=== PATIENT | female | born 1990 | race Caucasian/White ===

== ENCOUNTER → 2020-11-12 10:42 | Outpatient (CLI) | payer OTHER, MEDICAID, SELFPAY ==
--- NOTE | 2020-11-12 | DI.US.S_ITS ---
PROCEDURE: US OB <= 14 WEEKS FETUS INDICATIONS: SIZE AND DATES OUTSIDE/PRIOR DATING DATA: Last menstrual period (LMP): September 25, 2020 LMP-based estimated date of delivery (ITALIA): July 02, 2021 First dating scan (date and location): [facility]. Estimated date of delivery (ITALIA) from first dating scan: July 04, 2021 TECHNIQUE: Real-time scanning was performed of the fetus and maternal pelvic organs, with image documentation. Endovaginal scanning was also performed to better visualize the fetus and maternal ovaries. COMPARISON: None. FINDINGS: Embryo: The crown-rump length measures 7.2 mm, compatible with a 6 week, 4 day gestation. Heart rate: The heart rate measures 125 beats per minute. Maternal organs: Echogenic lesion within the right ovary, which may represent a corpus luteum. The left ovary demonstrates no significant abnormality. IMPRESSION: No sonographic abnormality. Dictated by: Jason Scott M.D. on 11/12/2020 at 11:49 Approved by: Jason Scott M.D. on 11/12/2020 at 11:54
== END ==
PROVIDERS: PCP Family Medicine; Referring Provider Family Medicine; Visit Provider Family Medicine
DX: Z3A.01 Less than 8 weeks gestation of pregnancy; Z36.87 Encounter for antenatal screening for uncertain dates
CPT/HCPCS: 76801; 76817

== ENCOUNTER → 2021-03-10 14:01 | Outpatient (CLI) | payer OTHER, MEDICAID, SELFPAY ==
--- NOTE | 2021-03-10 | DI.US.S_ITS ---
PROCEDURE: US OB >= 14 WEEKS FETUS INDICATIONS: 20 WEEK ANATOMY OUTSIDE/PRIOR DATING DATA: Last menstrual period (LMP): 09/25/20. LMP-based estimated date of delivery (ITALIA): 07/02/21. First dating scan (date and location): 11/12/20. Estimated date of delivery (ITALIA) from first dating scan: 07/04/21. The calculations are made using the ultrasound ITALIA of 07/04/21. TECHNIQUE: Real-time scanning was performed of the fetus, with image documentation and biometric measurements. Endovaginal scanning: Not performed COMPARISON: None. FINDINGS: General: A single living intrauterine gestation is present. Presentation: Transverse, head to maternal right. Placenta: Placental position is posterior , without previa. Amniotic fluid index: 14.4 cm, normal range is 5-24 cm. Single deepest vertical pocket is 4.1 cm. heart rate: 141 beats per minute. Maternal cervical canal: 4.1 cm long. Normal lower limit is 2.5 cm. biometrics: Biparietal diameter: 6.1 cm, 24 weeks, five days Head circumference: 22.0 cm, 24 weeks, 0 days Abdominal circumference: 19.5 cm, 24 weeks, one day Femur length: 4.1 cm, 23 weeks, two days Clinically estimated gestational age: 23 weeks, three days Composite gestational age from present scan: 24 weeks, 0 days Estimated weight and percentile: 635 g, 63rd percentile Anatomic survey: Neuro: Ventricles are non-dilated at less than 10 mm. Cisterna magna is normal at 3-11 mm. Cerebellum is normal in size and morphology. Nuchal skin fold: Normal at less than 6 mm between 14-21 weeks gestational age. Face: Nose and lips, facial profile are normal. Spine: No evidence for spina bifida. Heart: 4-chambered heart is present. Cardiac outflow tracts were not well seen. Diaphragm: Diaphragm is intact. Stomach: Left-sided stomach is present. Kidneys: No hydronephrosis. Normal is less than 5 mm in 2nd trimester, less than 7 mm in 3rd trimester. Cord: 3-vessel cord has orthotopic insertion. Bladder: Normal in size. Extremities: All 4 extremities identified. IMPRESSION: 1. Single living intrauterine with appropriate growth since the prior study. 2. Cardiac outflow tracts were suboptimally assessed given position. Consider follow-up. 3. Otherwise normal anatomy. We strive to produce accurate, complete, and clear reports of imaging services. To assist us in improving patient care, this report was composed using standard report templates and voice recognition software. Therefore, it may contain abnormal punctuation, insertions and/or omissions. Occasional wrong-word or sound-alike substitutions may occur. Though we review the report and make efforts to correct it, we do recommend that the report be read carefully in proper context to recognize any text inaccuracies. Dictated by: Rosa Tang M.D. on 03/10/2021 at 16:03 Approved by: Rosa Tang M.D. on 03/10/2021 at 16:13
--- NOTE | 2021-03-19 | DI.US.S_ITS ---
PROCEDURE: US OB LIMITED INDICATIONS: RE-EVALUATE HEART OUTSIDE/PRIOR DATING DATA: Last menstrual period (LMP): 09/25/2020 LMP-based estimated date of delivery (ITALIA): 07/02/2021. First dating scan (date and location): 11/12/2020. Estimated date of delivery (ITALIA) from first dating scan: 10/26/2021. The calculations are made using the ultrasound ITALIA of 07/04/2021. TECHNIQUE: Real-time scanning was performed of the fetus, with image documentation and biometric measurements. COMPARISON: Located Within [facility], , OB >= 14 WEEKS FETUS, 03/10/2021, 14:25. FINDINGS: General: A single living intrauterine gestation is present. Presentation: Transverse. Placenta: Placental position is posterior , without previa. Amniotic fluid index: 17.5 cm, normal range is 5-24 cm. heart rate: 130 beats per minute. Maternal cervical canal: 5.2 cm long. Normal lower limit is 2.5 cm. Clinically estimated gestational age: 24 weeks 5 days Of solitary left ventricular intracardiac focus and normal appearance of the cardiac outflow tracts. IMPRESSION: 1. Single living IUP redemonstrated and today's exam demonstrating solitary left ventricular intracardiac focus; otherwise normal appearance of the four-chamber heart and cardiac outflow tracts. We strive to produce accurate, complete, and clear reports of imaging services. To assist us in improving patient care, this report was composed using standard report templates and voice recognition software. Therefore, it may contain abnormal punctuation, insertions and/or omissions. Occasional wrong-word or sound-alike substitutions may occur. Though we review the report and make efforts to correct it, we do recommend that the report be read carefully in proper context to recognize any text inaccuracies. Dictated by: Mani LEONE Interpreted: Shyam Strickland MD on 03/19/2021 at 14:33 Transcribed by: ROSANGELA on 03/19/2021 at 14:35 Approved by: Shyam Strickland M.D. on 03/19/2021 at 16:48
== END ==
PROVIDERS: PCP Family Medicine; Referring Provider Student in an Organized Health Care Education/Training Program; Visit Provider Student in an Organized Health Care Education/Training Program
DX: Z36.89 Encounter for other specified antenatal screening (principal); Z3A.24 24 weeks gestation of pregnancy
CPT/HCPCS: 76811

== ENCOUNTER → 2021-03-19 08:53 | Outpatient (CLI) | payer OTHER, SELFPAY | PROVIDERS: PCP Family Medicine; Referring Provider Family Medicine; Visit Provider Family Medicine | DX: Z36.2 Encounter for other antenatal screening follow-up (principal); Z3A.24 24 weeks gestation of pregnancy | CPT/HCPCS: 76815 ==

== ENCOUNTER → 2021-06-09 10:40 | Outpatient (ROUT) | payer OTHER, MEDICAID, SELFPAY | PROVIDERS: PCP Family Medicine; Visit Provider Student in an Organized Health Care Education/Training Program | DX: Z33.1 Pregnant state, incidental (principal) | CPT/HCPCS: 87081 ==

== ENCOUNTER 2021-07-06 12:01 | Outpatient (CLI) | payer OTHER, MEDICAID, SELFPAY | END 2021-07-06 12:55 | disposition home or self-care (01) | LOC: OB 07-07 14:29 | PROVIDERS: PCP Family Medicine; Referring Provider Student in an Organized Health Care Education/Training Program; Visit Provider Student in an Organized Health Care Education/Training Program | DX: O48.0 Post-term pregnancy (principal); O47.1 False labor at or after 37 completed weeks of gestation; Z3A.40 40 weeks gestation of pregnancy | CPT/HCPCS: 59025; G0378; G0379 ==

== ENCOUNTER 2021-07-07 10:41 | Observation (INO) | payer OTHER, MEDICAID, SELFPAY | END 2021-07-07 11:30 | disposition home or self-care (01) | PROVIDERS: Admitting Provider Student in an Organized Health Care Education/Training Program; PCP Family Medicine; Referring Provider Student in an Organized Health Care Education/Training Program; Visit Provider Student in an Organized Health Care Education/Training Program | DX: O48.0 Post-term pregnancy (principal); O47.1 False labor at or after 37 completed weeks of gestation; Z3A.40 40 weeks gestation of pregnancy | CPT/HCPCS: 59025; G0378; G0379 ==

== ENCOUNTER 2021-07-07 20:00 | Inpatient (IN) | payer OTHER, MEDICAID, SELFPAY ==
--- NOTE | 2021-07-07 20:49 | P.HPOB_ITS ---
OB HPI Date/Time Date of admission: 07/07/21 Date Patient Seen: 07/07/21 Time Patient Seen: 20:49 History of Present Condition Chief complaint: observation of labor Narrative: Shadia Ferguson is a 31 year old at female at 40w4d with ITALIA of 07/04/21 per first trimester ultrasound. She presents with active labor. Her course was complicated by COVID at 23 WGA. She was vacinated x 2 at time of inf ection and after resolution did get her booster. 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 During routine 24 week ultrasound, cardiac tracts were not completely seen. Follow-up ultrasound 5 days later, on 03/19/2021, showed a solitary left ventricular intracardiac focus but otherwise normal appearance of four-chamber heart and cardiac outflow tracts. MFM review on 03/24/21 reported normal variant with no follow-up required. She then had an ultrasound for growth at 30w6d which showed normal interval growth at 55th percentile but a femur length of < 1st percentile and a left renal pelvis at upper limits of normal, 7 mm. Follow-up [facility] ultrasound on 05/19/2021 revealed the femur length to be within normal limits at 8th percentile and the kidneys to also be within normal limits. MF consult was then canceled by [facility] and reassurance provided. LABS/IMAGING: ABO O positive, antibody negative on 12/08/20. Rubella immune. Hepatitis-B surface antigen negative. HIV, HSV 1 and 2 negative. GC/chlamydia negative. Treponemal antibody negative. Varicella titer positive. Pap smear plus HPV DNA negative on 11/30/20. Urine culture negative on 11/30/20. Hemoglobin/hematocrit 12.2/34.7 on 04/15/21. Repeat hemoglobin/hematocrit 12.0/35.1 on 04/15/21. TSH within normal limits. 1 hour Glucola negative on 04/15/21. GBS negative on 06/09/21. NIPT negative, 12/08/20, male. Dating US: 11/12/2020, 6w4d, ITALIA 07/04/21 Anatomy Scan: 24w0d, cardiac outflow tracks well seen follow-up ultrasound at 24w5d showed heart to be a normal variant. Growth scan: 30w6d, EFW 55th percentile with normal interval growth, femur length < 1st percentile, left renal pelvis at upper limits of normal. Follow up scan at 33w5d show normal femur length and normal kidneys. MFM review revealed no follow-up required. OBSTETRIC HISTORY: GYNECOLOGICAL HISTORY: ASCUS/HPV PAST MEDICAL HISTORY: History of abnormal pap smear, ASCUS, HPV + TAB x 2, first trimester PAST SURGICAL HISTORY: Colposcopy with cryotherapy, 2013 ACL/meniscal repair, 2016 FAMILY HISTORY: Father: Alcoholism, hyperlipidemia Mother: Breast cancer SOCIAL HISTORY: Single. FOB/boyfriend Edmund, involved and supportive. Works at [employer] in [place]. 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 Meds Home Medications and Allergies Allergies Allergy/AdvReac Type Severity Reaction Status Date / Time Naproxen Allergy Unknown Uncoded 05/17/17 12:22 Review of Systems Review of Systems Narrative: All remaining ROS were reviewed and negative except as addressed. OB Exam Narrative Exam Narrative: General: NAD Skin: Color unremarkable, no rash nor lesions HEENT: Neck supple with midline trachea Lungs: CTAB Heart: Normal rate, and regular rhythm, S1, S2 normal, no murmur, click, rub or gallop Abdomen: Gravid, soft, non-tender Extremities: No clubbing, no edema, no cyanosis Pelvis: Normal female external genitalia Presentation: vertex Cervix: 8/100/0/mid/soft, AROM with clear fluid Monitoring: Variability: Moderate Baseline: 130s Accelerations: Present Decelerations: few variables Contractions: Every 3 minutes Strength: Moderate Assessment and Plan Assessment and Plan Assessment and Plan narrative: 1. IUP at 40w4d 2. 3. Active Labor 4. Post-dates 5. HSV 2 Plan: Admit to Labor and delivery with routine orders. Anticipate vaginal delivery. Epidural now. Questions answered, appropriate consents will be signed.
[2021-07-07 21:15] VITALS: BP 127/74
[2021-07-07] MEDS: LACTATED RINGERS 1,000 ML 100 ML IV (22:00)
[2021-07-07 22:31] LABS: Add Manual Diff / Slide Review NO; Basophils Absolute Auto 100 /uL (0-100); Basophils Percent Auto 0.4 % (0-2); Eosinophils Absolute Auto 0 /uL (0-450); Eosinophils Percent Auto 0.1 % (2-4); Hematocrit 36.4 % (36-46); Hemoglobin 12.8 g/dL (12.0-16.0); Lymphocytes Absolute Auto 1500 /uL (1100-4500); Lymphocytes Percent Auto 10.6 % (25-40); Mean Corpuscular Hemoglobin 31.4 PG (26-34); Mean Corpuscular Volume 89.7 fL (80-100); Monocytes Absolute Auto 400 /uL (0-900); Monocytes Percent Auto 2.9 % (3-14); Neutrophils Absolute Auto 12500 /uL (1500-7000); Platelet Count 266 X10^3/uL (150-400); Red Blood Cell Count 4.06 X10^6/uL (4.0-5.2); Red Cell Distribution Width 13.7 % (11.6-14.8); White Blood Cell Count 14.5 X10^3/uL (4.5-11.0)
[2021-07-07 22:42] LABS: COVID19 -Nasal RAPID Negative (Negative)
--- NOTE | 2021-07-07 23:00 | PM.AN.REGBLK ---
Regional Block Pre-procedure Procedure: Continuous Lumbar Epidural for L&D Attending OB provider: Ambreen Ascencio PM/ROS narrative: term labor (post dates), no complications ASA Class: II Labs: Hct 36.4 % (36-46) 07/07/21 21:30 Plt Count 266 X10^3/uL (150-400) 07/07/21 21:30 Medications: Current Medications Generic Name Dose Route Start Last Admin Trade Name Freq PRN Reason Stop Dose Admin Calcium Carbonate 1,000 mg 07/07/21 20:46 Calcium Carbonate 500 Mg Tab PO Q2HR PRN Dyspepsia Carboprost Tromethamine 250 mcg 07/07/21 20:46 Carboprost 250 Mcg/Ml Ampul IM Q90M PRN Bleeding Diphenhydramine HCl 25 mg 07/07/21 22:26 Diphenhydramine 50 Mg/Ml Vial IV Q10M PRN Pruritis Fentanyl 100 mcg 07/07/21 20:46 Fentanyl 100 Mcg/2 Ml Inj IV Q1H PRN Pain, Severe (7-10) Lactated Ringer's 1,000 mls @ 100 mls/hr 07/07/21 21:00 Lactated Ringers IV CONT GRACE Oxytocin/Lactated Ringer's 30 unit in 500 mls @ 200 mls/hr 07/07/21 20:46 Oxytocin Premix IV CONT PRN Bleeding Protocol Tranexamic Acid 1,000 mg/ 100 mls @ 200 mls/hr 07/07/21 20:46 Sodium Chloride IV NOW PRN Bleeding FENT 2MCG/ML BUPIV 0.125% EPI 200 mcg in 100 mls @ 6 mls/hr 07/07/21 22:30 Fentanyl/Bupiv/Ns 2mcg/Ml - 0.125% EPIDURAL CONT GRACE Methylergonovine Maleate 0.2 mg 07/07/21 20:46 Methylergonovine 0.2 Mg Tablet PO Q6HR PRN Heavy Bleeding Methylergonovine Maleate 0.2 mg 07/07/21 20:46 Methylergonovine 0.2 Mg/Ml Vial IM NOW PRN Bleeding Misoprostol 800 mcg 07/07/21 20:46 Misoprostol 200 Mcg Tablet MT NOW PRN Bleeding Misoprostol 1,000 mcg 07/07/21 20:46 Misoprostol 200 Mcg Tablet MT NOW PRN Bleeding Misoprostol 400 mcg 07/07/21 20:46 Misoprostol 200 Mcg Tablet SL NOW PRN Bleeding Nalbuphine HCl 2.5 mg 07/07/21 22:26 Nalbuphine 20 Mg/Ml Ampul IV Q10M PRN Pruritis Naloxone HCl 0.2 mg 07/07/21 20:46 Naloxone 0.4 Mg/Ml Vial IV Q2MIN PRN Opiate Reversal Ondansetron HCl 4 mg 07/07/21 20:46 Ondansetron 4 Mg/2 Ml Inj IV Q4HR PRN Nausea And Vomiting Oxytocin 10 unit 07/07/21 20:46 Oxytocin 10 Unit/Ml Vial IM NOW PRN Bleeding Allergies: Allergies Allergy/AdvReac Type Severity Reaction Status Date / Time Naproxen Allergy Unknown Uncoded 05/17/17 12:22 Procedure Insertion date: 07/07/21 Insertion time: 22:40 Prep/Local: betadine x3 and 1% lidocaine Interspace: L3-4 Patient position: sitting Needle: 18 gauge [employer] (CSE: 27g Pencan through Hustead, clear CSF, 1mL 0.25% bupiv MPF) Loss of resistance with: saline MAGED at (cm): 6 Catheter placed at SKIN (cm): 12 Catheter in SPACE (cm): 6 Insertion: No CSF, No Blood, No Paresthesia with insertion, No Paresthesia with injection and No Test dose reaction Initial Medications TEST DOSE time: 22:41 TEST DOSE: 1.5% lidocaine with epinephrine 1:200k (mL): 3 BOLUS DOSE time: 22:55 BOLUS DOSE (mL): 5 BOLUS DOSE med: other (infusate) Infusion INFUSION: 0.125% bupivacaine and with fentanyl 2 mcg/mL Initial rate (mL/hr): 6 Subsequent interventions: Vacuum-assisted vaginal delivery Post-procedure Anesthesia time START: 22:27 Anesthesia time END: 00:29 Post-procedure Anesthesia Assessment: Yes CV function: HR/BP stable, Yes Resp function: RR/sat/airway adequate, Yes Mental status appropriate and No Anesthesia complications
--- NOTE | 2021-07-07 23:42 | PM.OBPNLAB ---
Date/Time Date Patient Seen: 07/07/21 Time Patient Seen: 23:42 Pain Control Comments: Status post epidural, feeling very comfortable. Feeling pressure. Pelvic Exam Dilation (cm): 10 Effacement (%): 100 station: +2 Contractions Monitor mode: External Contraction frequency (min): 3 Contraction duration (min): 1 Contraction pattern: Regular Contraction intensity: Moderate Status Heart Rate Baseline: 120 Monitor Accelerations: Present Monitor Decelerations: Absent Monitor Variability: Moderate Assessment and Plan Assessment: active labor Plan: continuous present management Comments: Will start pushing.
[2021-07-08] MEDS: LACTATED RINGERS 1,000 ML 100 ML IV (00:15)
[2021-07-08] MEDS: OXYTOCIN PREMIX 30 UNIT/500 ML PLAST..BAG 200 UNIT IV (00:34)
--- NOTE | 2021-07-08 01:34 | P.PCNOB_ITS ---
Labor & Delivery Narrative: Operation:?Vacuum-Assisted Vaginal Delivery Date:?07/08/21 Physician: Ambreen Ascencio MD Anesthesia:?Epidural PreOp Dx: 1. IUP at 40w5d 2. 31 yo 3. Non-reassuring heart rate. PostOp Dx: 1. IUP at 40w5d 2. 31 ho 3. Non-reassuring heart rate. 4. 2nd degree perineal laceration Procedures: 1. Vacuum-assisted vaginal delivery 2. Repair of a 2nd degree perineal laceration. Estimated Blood Loss:?300cc Complications:?None Findings: 1. Live male with Apgars of 8 and 9. 2. Placenta delivered with assistance, intact, with a three-vessel cord. 3. 2nd degree perineal laceration Disposition:?The patient and baby remain in the LDR in stable condition. Summary: Shadia Ferguson is a 31-year-old woman who was since 40 weeks 4 days when she was admitted in active labor. When she was admitted, her cervix was 6 cm dilated and she was having regular contractions every 3-4 minutes. The heart rate was reactive and reassuring with a baseline in the 130s and moderate variability. Labor progressed rapidly with artificial rupture of membranes occurring at 22:00 with clear fluid. She was 8/100/0 at that time and requested an epidural. After the epidural she progressed quickly to complete and starting having a late deceleration that was treated with position change, fluid bolus and oxygen. Shane catheter was removed. Heart rate recovered somewhat and pushing commenced at approximately 23:45. However, heart tracing continued to show decelerations into the 80s with most contractions and with progressively poor recovery between contractions. was prolonged. Because of this, vacuum delivery was recommended to expedite delivery of the baby and patient agreed. Additional RN product support representative were present in the room. The baby's head was confirmed to be in the straight occiput anterior presentation with 100% effacement while . The vacuum was then placed and the correct placement in front of the posterior fontanelle was confirmed digitally. Maternal tissue was noted to be excluded form the Kiwi. With the patient's next contraction, the Kiwi vacuum was inflated according to the engineering test mechanic's instructions and a gentle downward pressure was used to assist in finally delivering the baby's head. There were 2 pulls and no pop-offs and the vaccuum was applied for approximately 30 seconds. The contraction ended and the vacuum was deflated and removed and the handed to the mother. There was no nuchal cord. The baby's anterior shoulder delivered effortlessly followed by the posterior shoulder and the rest of the body. The cord was clamped x2 and cut. Pitocin was added to the patient's IV fluids. The placenta delivered spontaneously, was intact and had a three-vessel cord. A vaginal inspection revealed a second-degree perineal laceration that was repaired with #3-0 Vicryl suture in a running fashion. The patient tolerated the procedure very well. She remains in the LDR with the baby. The baby is vigorous, crying and moving all extremities.
[2021-07-08] MEDS: IBUPROFEN 600 MG TABLET PO ×3 (04:08→20:24)
[2021-07-08] MEDS: DERMOPLAST SPRAY 20% 60 ML 1 SPRAY TOP (04:08)
[2021-07-08] MEDS: ACETAMINOPHEN 325 MG TABLET 650 MG PO ×3 (04:08→20:25)
[2021-07-08] MEDS: DOCUSATE 100 MG CAPSULE PO (10:13)
[2021-07-08] MEDS: PRENATAL VIT,CALC/IRON/FOLIC 1 TABLET 1 TAB PO (10:13)
[2021-07-09] MEDS: ACETAMINOPHEN 325 MG TABLET 650 MG PO ×3 (01:15→11:45)
[2021-07-09] MEDS: IBUPROFEN 600 MG TABLET PO ×2 (03:02→11:45)
--- NOTE | 2021-07-09 06:20 | P.DS_ITS ---
Discharge Providers Provider Date of admission: 07/07/21 20:00 Discharge Date: 07/09/21 Primary care physician: Jesi Pope MD Consults: 07/09/21 01:15 Consult to Client Experience Specialist Routine Comment: Discharge provider: Ambreen Ascencio MD Summary Hospital Course Date Patient Seen: 07/09/21 Time Patient Seen: 06:21 Diagnoses: 1. 31 yo 2. Status post at 40w5d 3. HSV 2 positive, present on admission, treated with acyclovir Hospital Course: Unremarkable. Mother is well. Tolerating full diet with no nause a vomiting. Ambulating well. Lochia less than menses. On day of discharge, she is afebrile with stable vital signs throughout. Peripartum Data Delivery Method: Assisted Delivery (vaccuum) Episiotomy description: None Procedures: 1. Vacuum assisted spontaneous vaginal delivery, Dr. Ascencio, 07/08/21, no complications 2. Repair of 2nd degree perineal laceration, Dr. Ascencio, 07/08/21, no complications 3. Epidural, Dr. García, 07/07/21, no complications Status at Discharge Cognitive/behavioral status at discharge: at baseline, oriented Functional status at discharge: independent ambulation Overall status at discharge: patient is progressing back to baseline Time Spent with Patient Time attestation: Total time spent providing and/or coordinating discharge services: 35 minutes. Objective Labs Result Diagrams: 07/07/21 21:30 Exam Narrative Exam Narrative: General: NAD Skin: Color unremarkable, no rash nor lesions HEENT: Neck supple with midline trachea Lungs: CTAB Heart: Normal rate and regular rhythm, S1, S2 normal, no murmurs, click, rub or gallop Abdomen: FF, U-2, soft, non-tender, +BS Extremities: No edema, no cyanosis Discharge Plan Discharge Plan Patient Disposition: Home Provider Discharge Comment: [address] Ascencio, [facility], 07/22, check in at 11 am. Discharge orders & Medications Prescriptions: New docusate sodium 100 mg Capsule 100 mg PO BID PRN (Reason: constipation) Qty: 15 1RF ibuprofen 600 mg Tablet 600 mg PO Q6HR PRN (Reason: Pain, Mild (1-3)) Qty: 90 1RF Prenatabs Rx 29 mg iron- 1 mg Tablet 1 tab PO DAILY Qty: 90 3RF acetaminophen 325 mg Tablet 650 mg PO Q6HR PRN (Reason: Pain, Mild (1-3)) Qty: 45 0RF Continued Prenatabs FA 29-1 mg Tablet 1 tab PO DAILY 0RF Discontinued acyclovir 400 mg tablet 400 mg PO TID 0RF Label Comments: TAKE 1 TABLET BY MOUTH THREE TIMES DAILY Follow up/Referrals: Ambreen Ascencio MD [Physician] - (please f/u w/ Dr. Ascencio on July 22 @ 11am) Jesi Pope MD [Primary Care Provider] - Diet/Activity/Treatments Diet: Diet as Tolerated Activity: 1. Routine care 2. No driving for 2 weeks. 3. Call or return for uncontrolled pain, fever, intractable nausea or vomiting, trouble with urination, heavy vaginal bleeding greater than 1 pad per hour, suicidal/homicidal thoughts, signs or symptoms of infection, or any other concerns. Visit Report/Discharge Packet Stand Alone Forms: Discharge: Care Discharge Data Primary Care Provider: Jesi Pope
[2021-07-09] MEDS: PRENATAL VIT,CALC/IRON/FOLIC 1 TABLET 1 TAB PO (11:45)
[2021-07-09] MEDS: DOCUSATE 100 MG CAPSULE PO (11:45)
== END 2021-07-09 12:48 | disposition home or self-care (01) | DRG 806 ==
PROVIDERS: Admitting Provider Student in an Organized Health Care Education/Training Program; PCP Family Medicine; Referring Provider Student in an Organized Health Care Education/Training Program; Visit Provider Student in an Organized Health Care Education/Training Program
DX: O48.0 Post-term pregnancy (principal); O98.32 Other infections with a predominantly sexual mode of transmission complicating childbirth; Z37.0 Single live birth; O47.1 False labor at or after 37 completed weeks of gestation; Z3A.40 40 weeks gestation of pregnancy; A60.00 Herpesviral infection of urogenital system, unspecified; O70.1 Second degree perineal laceration during delivery; O76 Abnormality in fetal heart rate and rhythm complicating labor and delivery
CPT/HCPCS: 01967; 36415; 59025; 59050; 85025; 86850; 86900; 86901; 87635; C9803; G0378; G0379; J2590